=== PATIENT | female | born 1985 | race Caucasian/White ===

== ENCOUNTER 2018-05-19 10:04 | Outpatient (CLI) | payer OTHER ==
--- NOTE | 2018-05-19 15:55 | MRI Report ---
Procedure Date: 05/19/2018 Accession Number: [id number] / [id number] Procedure: MRI - Cervical Spine W/O CPT Code: FULL RESULT: EXAM: MRI CERVICAL SPINE WITHOUT CONTRAST: EXAM DATE: 05/19/2018 11:27 AM. CLINICAL HISTORY: Neck pain for 18 months. Tingling/aching both arms. Pulling injury September 2016. Cervicalgia. COMPARISONS: None. TECHNIQUE: Multiplanar, multisequence T1-weighted and fluid-sensitive sequences of the cervical spine without contrast. Other: None. FINDINGS: No suspicious marrow replacement is present. A small amount of diskogenic marrow edema is seen in the endplates adjacent to the C6-C7 disk space. No abnormal T2 signal is present in the cervical spinal cord. No significant spondylolisthesis is present. C2 through C5: No posterior disk protrusion. No central canal or foraminal stenosis. C5-C6: A very mild broad-based posterior disk protrusion is seen greater towards the left. Bilateral uncovertebral joint spurring is seen. No central canal or foraminal stenosis. C6-C7: Disk/osteophyte complex is seen involving the right posterior lateral margin of the disk. Bilateral uncovertebral joint spurring is seen. Moderate right and mild left foraminal stenosis are present. C7-T1: No posterior disk protrusion. IMPRESSION: 1. A very mild posterior disk protrusion is present at C5-C6. 2. Disk/osteophyte complex formation and uncovertebral joint spurring on the right at C6-C7 results in moderate right foraminal stenosis. There is mild left foraminal stenosis at this level due to uncovertebral joint spurring. 3. No abnormal signal is seen in the cervical spinal cord to suggest an intrinsic cord lesion such as a demyelinating plaque. [facility]
== END 2018-05-19 10:05 | disposition home or self-care (01) ==
LOC: DI 10:04
PROVIDERS: ATTEND Family Medicine
DX: M50.222 Other cervical disc displacement at C5-C6 level (principal); M48.02 Spinal stenosis, cervical region
CPT/HCPCS: 72141